=== PATIENT | male | born 1930 | race Caucasian/White ===

== ENCOUNTER 2016-11-03 09:10 | Day surgery (SDC) | payer OTHER ==
[2016-11-03] MEDS ORDERED: NS 500 ML IV 500 ML IV ONE ×2 (09:24→11:20)
[2016-11-03] MEDS ORDERED: DIPRIVAN VIAL ONE (09:39)
[2016-11-03] MEDS ORDERED: TETRACAINE 0.5% OPHTH 1 DOSE AFFEYE ONE ×2 (09:48→14:20)
[2016-11-03] MEDS ORDERED: VIGAMOX 0.5% OPHTH 1 DOSE AFFEYE ONE ×5 (09:50→14:45)
[2016-11-03] MEDS ORDERED: PROLENSA OPHTH 1 DOSE AFFEYE ONE (10:02)
[2016-11-03] MEDS ORDERED: ALPHAGAN-P OPHTH 1 DOSE AFFEYE ONE (10:04)
[2016-11-03] MEDS ORDERED: CYCLOGYL 1% OPHTH 1 DOSE OP ONE ×3 (10:05→10:15)
[2016-11-03] MEDS ORDERED: MYDRIACIL OPHTH 1 DOSE AFFEYE ONE ×3 (10:05→10:15)
[2016-11-03] MEDS ORDERED: AK-DILATE 2.5% OPHTH 1 DOSE OP ONE ×3 (10:05→10:15)
[2016-11-03] MEDS ORDERED: BETADINE OPHTH SOLN 5% EACHEYE ONE (14:20)
[2016-11-03] MEDS ORDERED: DUOVISC IO ONE ×2 (14:25→14:32)
[2016-11-03] MEDS ORDERED: ADRENALINE CHL INJ IJ ONE ×2 (14:25→14:32)
[2016-11-03] MEDS ORDERED: XYLOCAINE-MPF 1% IJ ONE ×2 (14:25→14:32)
[2016-11-03] MEDS ORDERED: BSS OPHTH (PLAIN) 500 ML with VANCOMYCIN HCL 500 MG VIAL 25 MG, ADRENALINE CHL INJ 1 MG IR ONE ×6 (14:27)
[2016-11-03 14:58] VITALS: BP 142/76
== END 2016-11-03 14:58 | disposition home or self-care (01) ==
LOC: SURG1 09:10
PROVIDERS: ATTEND Ophthalmology
PROC: 08RK3JZ Replacement of Left Lens with Synthetic Substitute, Percutaneous Approach (ICD-10-PCS; principal; 2016-11-03 18:30)
PROC: 08DK3ZZ Extraction of Left Lens, Percutaneous Approach (ICD-10-PCS; principal; 2016-11-03 18:30)
DX: H25.12 Age-related nuclear cataract, left eye (principal); H25.012 Cortical age-related cataract, left eye
CPT/HCPCS: 99100; A4217; J0170; J3370; J3490

== ENCOUNTER 2016-11-10 07:48 | Day surgery (SDC) | payer OTHER ==
[2016-11-10] MEDS ORDERED: TETRACAINE 0.5% OPHTH 1 DOSE AFFEYE ONE ×5 (07:55→10:01)
[2016-11-10] MEDS ORDERED: NS 500 ML IV 500 ML IV ONE (07:56)
[2016-11-10] MEDS ORDERED: VIGAMOX 0.5% OPHTH 1 DOSE AFFEYE ONE ×8 (08:00→10:21)
[2016-11-10] MEDS ORDERED: PROLENSA OPHTH 1 DOSE AFFEYE ONE (08:16)
[2016-11-10] MEDS ORDERED: ALPHAGAN-P OPHTH 1 DOSE AFFEYE ONE (08:17)
[2016-11-10] MEDS ORDERED: MYDRIACIL OPHTH 1 DOSE AFFEYE ONE ×3 (08:18→08:20)
[2016-11-10] MEDS ORDERED: CYCLOGYL 1% OPHTH 1 DOSE OP ONE ×3 (08:18→08:20)
[2016-11-10] MEDS ORDERED: AK-DILATE 2.5% OPHTH 1 DOSE OP ONE ×3 (08:18→08:20)
[2016-11-10] MEDS ORDERED: BETADINE OPHTH SOLN 5% EACHEYE ONE (09:55)
[2016-11-10] MEDS ORDERED: KENALOG INJ 40 MG ONE (09:56)
[2016-11-10] MEDS ORDERED: XYLOCAINE-MPF 1% IJ ONE ×2 (10:00→10:01)
[2016-11-10] MEDS ORDERED: ADRENALINE CHL INJ IJ ONE ×2 (10:00→10:01)
[2016-11-10] MEDS ORDERED: BSS OPHTH (PLAIN) 500 ML with VANCOMYCIN HCL 500 MG VIAL 25 MG, ADRENALINE CHL INJ 1 MG IR ONE ×3 (10:01)
[2016-11-10] MEDS ORDERED: DUOVISC IO ONE (10:01)
[2016-11-10] MEDS ORDERED: VISCOAT 0.5 ML IO ONE (10:11)
[2016-11-10] MEDS ORDERED: KENALOG INJ 40 MG IJ ONE (10:18)
[2016-11-10 11:19] VITALS: BP 148/72
[2016-11-10] MEDS ORDERED: DIPRIVAN VIAL ONE (14:05)
== END 2016-11-10 10:45 | disposition home or self-care (01) ==
LOC: SURG1 07:48
PROVIDERS: ATTEND Ophthalmology
PROC: 08DK3ZZ Extraction of Left Lens, Percutaneous Approach (ICD-10-PCS; principal; 2016-11-10 09:45)
PROC: 08RK3JZ Replacement of Left Lens with Synthetic Substitute, Percutaneous Approach (ICD-10-PCS; principal; 2016-11-10 09:45)
DX: H25.12 Age-related nuclear cataract, left eye (principal); H11.001 Unspecified pterygium of right eye
CPT/HCPCS: 99100; A4217; J0170; J3301; J3370; J3490